=== PATIENT | female | born 1960 | race Caucasian/White ===

== ENCOUNTER 2016-10-01 22:29 | Inpatient (IN) | payer MEDICAID ==
--- NOTE | 2016-10-01 23:06 | EDPHY ---
H & P Stated Complaint: LLQ pain Time Seen by Provider: 10/01/16 22:37 HPI/ROS: This is a 56-year-old female presenting to the emergency department complaining of left lower quadrant pain. Patient reports pain started yesterday evening increased today with 1 episode of vomiting, last bowel movement was this morning normal per patient. Decrease in appetite. Patient reports a history of small-bowel obstruction 2 years ago. Denies any other complaints REVIEW OF SYSTEMS: Constitutional: No fever no chills decreased appetite Eyes: No vision changes ENT: No sore throat Respiratory: No cough no shortness of breath Cardiac: No chest Gastrointestinal: Left lower quadrant abdominal pain with nausea vomiting Genitourinary: Denies dysuria Musculoskeletal: No joint pain Skin: No rash Neurological: No headache or dizziness Source: Patient - Personal History Current Tetanus/Diphtheria Vaccine: Unsure Current Tetanus Diphtheria and Acellular Pertussis (TDAP): Unsure - Medical/Surgical History Hx Asthma: No Hx Chronic Respiratory Disease: No Hx Diabetes: No Hx Cardiac Disease: No Hx Renal Disease: No Hx Cirrhosis: No Hx Alcoholism: No Hx HIV/AIDS: No Hx Splenectomy or Spleen Trauma: No Other PMH: hx right breast CA, spinal diskectomy and fusion, scoliosis, SBO - Social History Smoking Status: Former smoker - Physical Exam Exam: CONSTITUTIONAL: patient appeared well nourished, non-ill appearing and normally developed. No acute distress. Vital signs as documented. HEENT: Normocephalic atraumatic NECK: Supple, FROM without pain RESP: Non-labored resp effort, airway patent, CTAB CARDIAC: RRR w/o murmur, jyoti. Normal S1/S2 GI: Abd soft nondistended left lower quadrant tenderness on palpate NEURO: AAOx3 ambulatory without gait disturbance EXTREMITIES: FROM without pain or difficulty. SKIN: Warm and dry no rash PSYCH: Normal affect, calm, no distress, acting appropriate Constitutional: Initial Vital Signs Temperature (C) 36.9 C 10/01/16 22:33 Heart Rate 70 10/01/16 22:33 Respiratory Rate 16 10/01/16 22:33 Blood Pressure 129/73 H 10/01/16 22:33 O2 Sat (%) 95 10/01/16 22:33 O2 Delivery Mode Room Air Allergies/Adverse Reactions: mosquitos Allergy (Uncoded 10/01/16 22:33) Home Medications: Medication Instructions Recorded Calcium Carbonate [Oyster Shell 1,000 mg PO DAILY 09/17/14 Calcium 500 mg (*)] Cholecalciferol Vit D3 [Vitamin D3 2,000 units PO DAILY 09/17/14 (*)] Lisinopril [Zestril 10 mg (*)] 10 mg PO DAILY 09/17/14 Medical Decision Making - Diagnostics Imaging: Imaging Impressions Abdomen CT 10/01/16 23:33 Impression: 1. Partial small bowel obstruction with transition in the anterior left lower abdomen. Similar appearance to the prior exam. 2. Cholelithiasis. 3. Left adnexal cyst is mildly increased in size measuring 4.5 cm. 4. Other chronic findings as above. Results called and discussed with Diana Alcazar NP at 10/02/2016 0:22. ED Course/Re-evaluation: Discussed plan of care: CBC, Chem 7, UA, CT abdomen pelvis 0020: Spoke with Dr. Castillo CT is positive for small bowel obstruction, cholelithiasis and a left ovarian cyst 0040: Consulted with surg. Dr. Sandoval 0130: Dr. Sandoval at bedside with patient. Discussed admit with patient patient agreed with plan. Differential Diagnosis: Differential diagnosis considered but not limited to diverticulitis, perforated bowel and gastritis - Data Points Laboratory Results: Laboratory Results 10/01/16 23:22 10/01/16 23:22 10/01/16 10/01/16 10/01/16 23:22 23:22 23:22 WBC 12.65 10^3/uL H 10^3/uL (3.80-9.50) RBC 5.52 10^6/uL H 10^6/uL (4.18-5.33) Hgb 16.9 g/dL H g/dL (12.6-16.3) Hct 48.9 % H % (38.0-47.0) MCV 88.6 fL fL (81.5-99.8) MCH 30.6 pg pg (27.9-34.1) MCHC 34.6 g/dL g/dL (32.4-36.7) RDW 12.5 % % (11.5-15.2) Plt Count 238 10^3/uL 10^3/uL (150-400) MPV 9.5 fL fL (8.7-11.7) Neut % (Auto) 88.7 % H % (39.3-74.2) Lymph % (Auto) 7.0 % L % (15.0-45.0) [place] % (Auto) 3.3 % L % (4.5-13.0) Eos % (Auto) 0.1 % L % (0.6-7.6) Baso % (Auto) 0.4 % % (0.3-1.7) Nucleat RBC Rel Count 0.0 % % (0.0-0.2) Absolute Neuts (auto) 11.22 10^3/uL H 10^3/uL (1.70-6.50) Absolute Lymphs (auto) 0.89 10^3/uL L 10^3/uL (1.00-3.00) Absolute Monos (auto) 0.42 10^3/uL 10^3/uL (0.30-0.80) Absolute Eos (auto) 0.01 10^3/uL L 10^3/uL (0.03-0.40) Absolute Basos (auto) 0.05 10^3/uL 10^3/uL (0.02-0.10) Absolute Nucleated RBC 0.00 10^3/uL 10^3/uL (0-0.01) Immature Gran % 0.5 % % (0.0-1.1) Immature Gran # 0.06 10^3/uL 10^3/uL (0.00-0.10) Sodium 141 mEq/L mEq/L (134-144) Potassium 4.4 mEq/L mEq/L (3.5-5.2) Chloride 103 mEq/L mEq/L (97-110) Carbon Dioxide 25 mEq/l mEq/l (22-31) Anion Gap 13 mEq/L mEq/L (8-16) BUN 14 mg/dL mg/dL (7-23) Creatinine 0.7 mg/dL mg/dL (0.6-1.0) Estimated GFR > 60 Glucose 101 mg/dL H mg/dL (70-100) Calcium 10.4 mg/dL mg/dL (8.5-10.4) Urine Color YELLOW Urine Appearance HAZY Urine pH 5.0 (5.0-7.5) Ur Specific [place] 1.025 (1.002-1.030) Urine Protein NEGATIVE (NEGATIVE) Urine Ketones 2+ H (NEGATIVE) Urine Blood 1+ H (NEGATIVE) Urine Nitrate NEGATIVE (NEGATIVE) Urine Bilirubin NEGATIVE (NEGATIVE) Urine Urobilinogen NEGATIVE EU EU (0.2-1.0) Ur Leukocyte Esterase NEGATIVE (NEGATIVE) Urine RBC 3-5 /hpf H /hpf (0-3) Urine WBC 5-10 /hpf H /hpf (0-3) Ur Epithelial Cells TRACE /lpf /lpf (NONE-1+) Urine Bacteria TRACE /hpf H /hpf (NONE SEEN) Urine Mucus 2+ /lpf H /lpf (NONE-1+) Ur Culture Indicated? NOT INDICATED (NI) Urine Glucose NEGATIVE (NEGATIVE) Medications Given: Discontinued Medications Fentanyl (Sublimaze) 50 mcg IVP EDNOW ONE Stop: 10/02/16 01:56 Last Admin: 10/02/16 01:55 Dose: 50 mcg Ketorolac Tromethamine (Toradol) 30 mg IVP EDNOW ONE Stop: 10/01/16 23:08 Last Admin: 10/01/16 23:28 Dose: 30 mg Departure - Departure Disposition: [facility] Inpatient Acute Clinical Impression: Small bowel obstruction Condition: Good
[2016-10-01] MEDS ORDERED: KETOROLAC 30 MG/1 ML SDV IVP ONE (23:07)
[2016-10-01 23:29] LABS: % IMMATURE GRANULYOCYTES 0.5 % (0.0-1.1); ABSOLUTE IMMATURE GRANULOCYTES 0.06 10^3/uL (0.00-0.10); ADD DIFF? NO; ADD MORPH? NO; ADD SCAN? NO; ATYPICAL LYMPHOCYTE FLAG 0 (0-99); FRAGMENT RBC FLAG 0 (0-99); HEMATOCRIT 48.9 % (38.0-47.0); HEMOGLOBIN 16.9 g/dL (12.6-16.3); LEFT SHIFT FLG 0 (0-99); LIPEMIA HEMOLYSIS FLAG 90 (0-99); MEAN CELL HEMOGLOBIN 30.6 pg (27.9-34.1); MEAN CELL HEMOGLOBIN CONCENTR. 34.6 g/dL (32.4-36.7); MEAN CELL VOLUME 88.6 fL (81.5-99.8); MEAN PLATELET VOLUME 9.5 fL (8.7-11.7); PLATELET CLUMPS FLAG 0 (0-99); PLATELET COUNT 238 10^3/uL (150-400); RED BLOOD CELL COUNT 5.52 10^6/uL (4.18-5.33); RED CELL DISTRIBUTION WIDTH 12.5 % (11.5-15.2)
[2016-10-01 23:48] LABS: ANION GAP 13 mEq/L (8-16); CALCIUM 10.4 mg/dL (8.5-10.4); CARBON DIOXIDE 25 mEq/l (22-31); CHLORIDE 103 mEq/L (97-110); CREATININE 0.7 mg/dL (0.6-1.0); GLOMERULAR FILTRATION RATE > 60; GLUCOSE 101 mg/dL (70-100); POTASSIUM 4.4 mEq/L (3.5-5.2); SODIUM 141 mEq/L (134-144)
[2016-10-01] MEDS ORDERED: IOPAMIDOL (ISOVUE-300) 100 ML BTL IV ONE (23:58)
[2016-10-02 00:06] LABS: COLOR YELLOW; LEUKOCYTE ESTERASE,URINE NEGATIVE (NEGATIVE); NITRITE,URINE NEGATIVE (NEGATIVE)
[2016-10-02 00:13] LABS: BACTERIA TRACE /hpf (NONE SEEN); MUCUS 2+ /lpf (NONE-1+)
[2016-10-02] MEDS ORDERED: ONDANSETRON DISINTEGRATING 4 MG TAB PO PRN (01:41)
[2016-10-02] MEDS ORDERED: fentaNYL 100 MCG/2 ML INJ ONE (01:45)
[2016-10-02] MEDS ORDERED: LIDOCAINE 2% JELLY 5 ML TUBE ONE (01:46)
[2016-10-02] MEDS ORDERED: fentaNYL 100 MCG/2 ML INJ IVP ONE (01:55)
--- NOTE | 2016-10-02 02:21 | GHP ---
[f rep st] PREOP HISTORY AND PHYSICAL DATE OF ADMISSION: 10/02/2016 This is a 56-year-old woman who presents with a recurrent small bowel obstruction as her chief complaint. HISTORY OF THE PRESENT ILLNESS: This is a 56-year-old woman who presents with approximately 10 days of crampy abdominal pain worsened after Internet remedies for small-bowel obstruction including spinach smoothies and apples. The patient was in her normal baseline state of health until she started having crampy abdominal pain approximately 10 days ago, acutely worsened over the course of today to the point where she came into the hospital with left lower quadrant abdominal pain. The pain is approximately 7/10 at worst and is crampy in nature. She did have a bowel movement this morning. Previous history of small-bowel obstructions in 2014, admitted twice over the course of [address] Chante Cruz and Dr. Bradly Dennison. The patient was treated nonoperatively both times. Initial time, patient opened up spontaneously. Second time, the patient had 2 days of nasogastric tube decompression, then a normal small bowel follow through after which she was able to tolerate a diet and was discharged to home. Surgical history for adhesive obstruction as that of an anterior approach for a spinal fusion in 1999. PAST MEDICAL HISTORY: Significant for breast cancer, status post lumpectomy; severe kyphoscoliosis, status post multilevel anterior and posterior spinal surgeries; and diverticulosis which was not treated operatively. Hypertension. PAST SURGICAL HISTORY: Include lumpectomy and spinal surgeries, anterior approach. ALLERGIES: No known drug allergies, but she has allergies to "mosquitos." FAMILY HISTORY: Significant for diabetes in her mother, breast cancer in paternal grandmother, and ovarian cancer in her maternal grandmother. Father of a heart attack at age 67. MEDICATIONS: Include vitamin D, lisinopril, and Calcium. REVIEW OF SYSTEMS: Significant for abdominal pain. SOCIAL HISTORY: She lives with her . She denies ever smoking. She has an occasional alcoholic beverage once or twice a year. PHYSICAL EXAMINATION: VITAL SIGNS: Patient has a temperature of 36.9, heart rate of 75, blood pressure of 121/64, respiratory rate of 16, saturating 94% on room air. GENERAL: She is alert, oriented to person, place, and time. Very pleasant. HEENT: Anicteric sclerae. Oropharynx is slightly dry. Good dentition. LUNGS: Clear bilaterally. HEART: Regular heart tones. S1 and S2. No JVD, thyromegaly, or supraclavicular or cervical adenopathy. ABDOMEN: Soft, minimally tender without peritoneal signs in the left lower quadrant. The lower transverse incision well healed below the umbilicus at the site of her maximal tenderness. MUSCULOSKELETAL: 2+ over 2+ femoral and distal pulses , dorsalis pedis and radial. She has good strength, range of motion. Normal skin turgor and tone. Severe kyphoscoliosis of the back which is nontender to palpation. She has good range of motion in all 4 extremities. NEUROLOGIC: Normal affect. Nonfocal neurologic exam. LABORATORY STUDIES: White blood cell count of 12.6. Hemoglobin of 16.9, hematocrit of 48.9, platelet count of 238. Sodium 141, potassium 4.4, chloride 103, bicarb of 25, BUN 14, creatinine of 0.7, glucose 101, calcium 10.4. Urinalysis is otherwise negative. CT scan is completely reviewed. Findings are that of a small bowel obstruction with transition point in the mid part of the jejunum in the left lower quadrant of the abdomen consistent with previous CT scan in 2015: Cholelithiasis, left adnexal cyst, and other chronic findings including her spinal hardware. IMPRESSION: A partial small bowel obstruction with transition point in the left lower quadrant of her abdomen, the anterior abdominal wall likely. PLAN: Would be nonoperative management with decompression, possible need for surgery if she does not resolve. She may need a laparoscopy with lysis of adhesions versus laparotomy depending on what is found. Risks, benefits, and alternatives to surgery including recurrent obstructions, injury to the bowel, need for further surgery, all have been outlined with the patient and her . They have agreed to nonoperative treatment. NG tube will be placed. She will be placed on bowel rest reassessed periodically. If no return of bowel function within 48hr consider SBFT and surgical options. /[id number]/MODL MTDD
[2016-10-02] MEDS: NS W/ 20 KCl/L 1,000 ML IV SCH (03:04)
[2016-10-02] MEDS: ONDANSETRON 4 MG/2 ML VIAL IVP PRN ×2 (03:11→08:45)
[2016-10-02] MEDS: LISINOPRIL/HCTZ 10/12.5 MG 1 EA TAB PO SCH (09:35)
[2016-10-02] MEDS: KETOROLAC 15 MG/1 ML SDV IVP PRN (20:47)
[2016-10-03 05:06] LABS: HEMATOCRIT 40.3 % (38.0-47.0); HEMOGLOBIN 13.5 g/dL (12.6-16.3); MEAN CELL HEMOGLOBIN 30.3 pg (27.9-34.1); MEAN CELL HEMOGLOBIN CONCENTR. 33.5 g/dL (32.4-36.7); MEAN CELL VOLUME 90.6 fL (81.5-99.8); RED BLOOD CELL COUNT 4.45 10^6/uL (4.18-5.33); RED CELL DISTRIBUTION WIDTH 12.7 % (11.5-15.2)
[2016-10-03 05:20] LABS: ANION GAP 12 mEq/L (8-16); CALCIUM 8.9 mg/dL (8.5-10.4); CARBON DIOXIDE 23 mEq/l (22-31); CHLORIDE 110 mEq/L (97-110); CREATININE 0.6 mg/dL (0.6-1.0); GLOMERULAR FILTRATION RATE > 60; GLUCOSE 80 mg/dL (70-100); POTASSIUM 4.1 mEq/L (3.5-5.2); SODIUM 145 mEq/L (134-144)
[2016-10-03] MEDS: NS W/ 20 KCl/L 1,000 ML IV SCH (08:31)
[2016-10-03] MEDS: KETOROLAC 15 MG/1 ML SDV IVP PRN (08:31)
[2016-10-03] MEDS: LISINOPRIL/HCTZ 10/12.5 MG 1 EA TAB PO SCH (09:50)
--- NOTE | 2016-10-03 10:08 | SOAPPROG ---
SOAP Progress Note Assessment/Plan: Assessment/Plan: 56 yo with adhesive obstruction with small BM yesterday and flatus today Minimal NGT output RRR CTA Abd soft NT ND Clamp NGT. Continue clears. Advance diet and remove NG if better this PM May eventually require surgery if recurrences become more frequent 10/03/16 10:05 Objective: Vital Signs Temp Pulse Resp BP Pulse Ox 37.2 C 93 16 134/59 H 92 10/03/16 08:00 10/03/16 08:00 10/03/16 08:00 10/03/16 08:00 10/03/16 08:00 Laboratory Results 10/03/16 04:29 10/03/16 04:29 10/02/16 10/03/16 10/04/16 05:59 05:59 05:59 Intake Total 0 3491 Output Total 2150 1000 Balance 0 1341 -1000 ICD10 Worksheet Patient Problems: Problems Problem Status Onset Small bowel obstruction Acute Small bowel obstruction due to adhesions Acute
[2016-10-04 08:41] VITALS: BP 128/64; PULSE 71; RESP 16; TEMP 98.2; O2SAT 96
[2016-10-04] MEDS: LISINOPRIL/HCTZ 10/12.5 MG 1 EA TAB PO SCH (09:15)
--- NOTE | 2016-10-24 12:50 | GDS ---
[f rep st] DISCHARGE SUMMARY This is a 56-year-old woman who presented for acute adhesive small bowel obstruction, treated nonope ratively. The patient's other medical history includes osteoporosis and hypertension. The patient presented to the hospital for evaluation and management of recurrent small bowel obstruction. The p atjusta had a previous spinal fusion through an anterior approach. Since then, she has had 2 or 3 sm all bowel obstruction, last 1 noted about 2 years ago at a similar time. The patient was admitted t o the hospital. She underwent an NG tube decompression. She was advanced in her diet and activity after regaining bowel activity. MEDICATIONS ON DISCHARGE: Zestril 10 mg daily, vitamin D 2000 units daily, and calcium carbonate 10 00 mg daily. The patient was back to her baseline state of health. She had no interventions. No complications w fili here in the hospital. She was directed to follow up with General Surgery as well as her primar care doctor, Dr. Lyn Mendez, within 2 weeks for further evaluation. She may ultimately need s urgical intervention for this problem, but currently she has no need for any additional procedures a t this time. /[id number]/MODL
== END 2016-10-04 12:55 | disposition home or self-care (01) | DRG 346 ==
LOC: F3E 10-02 02:54
PROVIDERS: ADMIT Surgery; ATTEND Surgery
PROC: 0D9800Z Drainage of Small Intestine with Drainage Device, Open Approach (ICD-10-PCS; principal; 2016-10-03)
DX: K56.5 Intestinal adhesions [bands] with obstruction (postinfection) (principal); K80.20 Calculus of gallbladder without cholecystitis without obstruction; I10 Essential (primary) hypertension; Z87.19 Personal history of other diseases of the digestive system; Z85.3 Personal history of malignant neoplasm of breast; Z98.1 Arthrodesis status; Z87.891 Personal history of nicotine dependence
CPT/HCPCS: 96374; J1885; J2405; J3010; Q9967

== ENCOUNTER → 2017-03-16 | Outpatient (CLI) | payer MEDICAID | LOC: FIMAGING 11:05 | PROVIDERS: ATTEND Family Medicine | DX: Z12.31 Encounter for screening mammogram for malignant neoplasm of breast (principal) | CPT/HCPCS: G0202 ==

== ENCOUNTER → 2018-03-20 | Outpatient (CLI) | payer MEDICAID | LOC: FIMAGING 15:18 | PROVIDERS: ATTEND Family Medicine | DX: Z12.31 Encounter for screening mammogram for malignant neoplasm of breast (principal); Z85.3 Personal history of malignant neoplasm of breast ==